=== PATIENT | male | born 1990 | race Caucasian/White ===

== ENCOUNTER 2019-05-15 13:10 | Emergency (ER) | payer OTHER, BC ==
[~2019-05-15] VITALS: Ht 190.5 cm; Wt 156.9 kg
[2019-05-15 13:45] LABS: ABSOLUTE BASOPHILS 0.1 thou/uL (0.0-0.2); ABSOLUTE EOSINOPHILS 0.3 thou/uL (0.0-0.7); ABSOLUTE LYMPHOCYTES 3.3 thou/uL (0.8-5.3); ABSOLUTE MONOCYTES 0.5 thou/uL (0.0-1.2); ABSOLUTE NEUTROPHILS 4.2 thou/uL (1.6-8.1); BASOPHILS 1.3 %; EOSINOPHILS 3.2 %; HEMATOCRIT 43.3 % (42.0-52.0); HEMOGLOBIN 14.8 gm/dL (14.0-18.0); LYMPHOCYTES 39.8 %; MCH 31.7 pg (26.0-34.0); MCHC 34.3 g/dL (28.0-37.0); MCV 92.5 fL (80.0-100.0); MONOCYTES 5.6 %; MPV 8.1 fl. (7.2-11.1); NUCLEATED RBCS 0 /100WBC; PLATELET COUNT* 309 thou/uL (150-400); POLYS 50.1 %; RBC 4.67 mil/uL (4.50-6.00); RDW-CV 13.7 % (10.5-14.5); WBC 8.4 thou/uL (4.0-11.0)
[2019-05-15 13:56] LABS: CREATININE 1.3 mg/dL (0.6-1.3); POTASSIUM 3.8 mmol/L (3.5-5.1)
[2019-05-15 14:00] LABS: TOTAL BILIRUBIN 0.5 mg/dL (<0.1-1.0); TOTAL PROTEIN 8.2 g/dL (6.4-8.2)
[2019-05-15] MEDS ORDERED: NORCO 5-325 TA1 EAC1 PO (14:53)
[2019-05-15 15:12] VITALS: BP 155/78
== END 2019-05-15 15:15 | disposition home or self-care (01) ==
LOC: M.ERS 13:10
PROVIDERS: Emergency Medicine Emergency Medical Services
DX: K42.9 Umbilical hernia without obstruction or gangrene (principal)

== ENCOUNTER 2021-05-22 19:08 | Emergency (ER) | payer BC ==
[~2021-05-22] VITALS: Ht 188 cm; Wt 140.6 kg
[~2021-05-22 19:08] MED LIST: NORCO 5-325 TA1 EAC1 PO
[2021-05-22] MEDS ORDERED: LISINOPRIL5 MG PO (19:33)
[2021-05-22] MEDS ORDERED: METFORMIN HCL500 M3 PO (19:34)
[2021-05-22] MEDS ORDERED: JARDIANCE10 MG PO (19:37)
[2021-05-22] MEDS ORDERED: ROBAXIN (19:37)
[2021-05-22 21:48] VITALS: BP 138/94
== END 2021-05-22 21:49 | disposition home or self-care (01) ==
LOC: M.ERS 19:08
DX: S62.91XA Unspecified fracture of right hand, initial encounter for closed fracture (principal); E11.9 Type 2 diabetes mellitus without complications; I10 Essential (primary) hypertension; X50.9XXA Other and unspecified overexertion or strenuous movements or postures, initial encounter; Y93.9 Activity, unspecified; Y92.89 Other specified places as the place of occurrence of the external cause; Y99.8 Other external cause status